=== PATIENT | male | born 1980 | race Caucasian/White ===

== ENCOUNTER 2020-03-09 10:02 | Emergency (ER) | payer MEDICARE, MEDICAID, SELFPAY ==
[2020-03-09 10:14] VITALS: BP 124/86; PULSE 90; RESP 18; TEMP 36.9; O2SAT 95; BMI 38.7
--- NOTE | 2020-03-09 10:15 | ED.GENADULT ---
HPI - General Adult General Chief complaint: General Medical Stated complaint: med refill Time Seen by Provider: 03/09/20 10:13 Source: other History of Present Illness HPI narrative: Patient is a 39-year-old male with past medical history of depression, anxiety, PTSD and muscle tissue damage who comes in requesting 3 week refill on his daily medications. He has an appointment with [facility] it is waiting for his meds to be refilled. He ran out 2 days ago. He states he is feeling fine today, has no chest pain, shortness of breath, SI, HI. Related Data Previous Rx's Medication Instructions Recorded diphenhydramine HCl 50 mg PO BEDTIME PRN #21 cap 03/09/20 escitalopram oxalate 10 mg PO DAILY #21 tab 03/09/20 ibuprofen 800 mg PO Q8H PRN #42 tab 03/09/20 oxcarbazepine 300 mg PO BID #42 tab 03/09/20 prazosin 2 mg PO BEDTIME #21 cap 03/09/20 trazodone 50 mg PO BEDTIME PRN #21 tab 03/09/20 Allergies Allergy/AdvReac Type Severity Reaction Status Date / Time No Known Allergies Allergy Verified 03/09/20 10:17 Review of Systems Review of Systems: Yes all other systems are reviewed and are negative [facility] Past Medical History Medical History No known health problems Social History Social History Advance Directives: No Advance Directives Information Provided: No Physical Exam Const: General: cooperative, healthy appearing, comfortable, no acute distress and well developed Nutritional Appearance: obese Orientation/consciousness: patient oriented x3 HENMT: Head: Yes normal to inspection Eyes: General: appearance normal, both eyes and all related structures Resp: Effort & Inspection: normal respiratory effort and able to speak in complete sentences Neuro: General: patient oriented x3 Extrem: General: Yes normal to inspection Course Course Course Narrative: Patient is a 39-year-old male with a past medical history of anxiety, depression, PTSD who ran out of meds 2 days ago, requesting 3 weeks refill until he can get [facility] to refill his meds. He did have an appointment with them already, this is just bridge meds. Mass pat negative, no history. Discharge Plan Discharge Clinical Impression: Anxiety, Depression, PTSD (post-traumatic stress disorder) Patient Disposition: Home, Self-Care Additional Instructions: As requested, I have sent 3 weeks worth of your medications to your pharmacy. Please be sure to follow-up with [facility] for continued prescription refills as this is a one time courtesy by this emergency department. Prescriptions: New escitalopram oxalate 10 mg tablet 10 mg PO DAILY Qty: 21 RF: 0 diphenhydramine HCl 50 mg capsule 50 mg PO BEDTIME PRN (Reason: sleep) Qty: 21 RF: 0 ibuprofen 800 mg tablet 800 mg PO Q8H PRN (Reason: pain) Qty: 42 RF: 0 oxcarbazepine 300 mg tablet 300 mg PO BID Qty: 42 RF: 0 prazosin 2 mg capsule 2 mg PO BEDTIME Qty: 21 RF: 0 trazodone 50 mg tablet 50 mg PO BEDTIME PRN (Reason: sleep) Qty: 21 RF: 0
== END 2020-03-09 10:33 | disposition home or self-care (01) ==
LOC: HO.ED 10:28
PROVIDERS: Emergency Provider Emergency Medicine
DX: Z76.0 Encounter for issue of repeat prescription (principal); F41.9 Anxiety disorder, unspecified; F32.9 Major depressive disorder, single episode, unspecified; F43.10 Post-traumatic stress disorder, unspecified
CPT/HCPCS: 99283